=== PATIENT | female | born 1990 | race Caucasian/White ===

== ENCOUNTER 2018-06-28 18:04 | Emergency (ER) | payer OTHER | END 2018-06-28 20:55 | disposition home or self-care (01) | LOC: M ED 18:04 | DX: O9A.213 Injury, poisoning and certain other consequences of external causes complicating pregnancy, third trimester (principal); R10.11 Right upper quadrant pain; R10.31 Right lower quadrant pain; Z3A.29 29 weeks gestation of pregnancy; W01.0XXA Fall on same level from slipping, tripping and stumbling without subsequent striking against object, initial encounter; Y92.89 Other specified places as the place of occurrence of the external cause; Z88.0 Allergy status to penicillin; Z79.899 Other long term (current) drug therapy | CPT/HCPCS: 76815 ==

== ENCOUNTER 2018-08-30 16:54 | Inpatient (IN) | payer OTHER ==
[2018-08-30] MEDS: LR 1,000 ML IV (18:27)
[2018-08-30 18:56] LABS: BASO # 0.1 10^3/uL (0.0-0.2); BASO % 0.4 % (0.0-1.0); EOS # 0.1 10^3/uL (0.0-0.50); EOS % 1.3 % (0.0-3.0); HEMATOCRIT 38.6 % (36.0-47.0); HEMOGLOBIN 12.7 g/dl (12.0-15.5); IMMATURE GRANULOCYTE % 0.4 % (0-3.0); LYMPH # 2.9 10^3/uL (1.5-6.5); LYMPH % 26.1 % (24.0-44.0); MEAN CORPUSCULAR HEMOGLOBIN 28.1 pg (27.0-33.0); MEAN CORPUSCULAR HGB CONC 32.9 g/dl (32.0-36.5); MEAN CORPUSCULAR VOLUME 85.4 fl (80.0-96.0); MONO # 0.6 10^3/uL (0.0-0.8); MONO % 5.7 % (0.0-5.0); NEUTROPHILS # 7.4 10^3/uL (1.8-7.7); NEUTROPHILS % 66.1 % (36.0-66.0); PLATELET COUNT, AUTOMATED 336 10^3/uL (150-450); RED BLOOD COUNT 4.52 10^6/uL (4.00-5.40); RED CELL DISTRIBUTION WIDTH 15.1 % (11.5-14.5); WHITE BLOOD COUNT 11.2 10^3/uL (4.0-10.0)
[2018-08-30] MEDS: LACTATED RINGER'S 1000 ML IV (19:05)
[2018-08-30] MEDS ORDERED: FENTANYL 2MCG/ML ROPIVACAINE 0.2% IN 0.9% NACL 200ML IVBAG As Ordered (19:52)
[2018-08-30] MEDS: FENTANYL/ROPIVACAINE/NACL BAG 200 ML EPIDURAL (20:24)
[2018-08-30] MEDS ORDERED: REFRIGERATOR IV KEYS XX (21:15)
[2018-08-30] MEDS ORDERED: diphenhydrAMINE INJ 50MG/ML VIAL (J1200) IV (21:15)
[2018-08-30] MEDS ORDERED: EPIDURAL COMMENT XX (21:15)
[2018-08-30] MEDS ORDERED: NALOXONE INJ 0.4 MG/1 ML VIAL (J2310) IV (21:15)
[2018-08-30] MEDS ORDERED: LACTATED RINGER'S 1000 ML IV (21:15)
[2018-08-30] MEDS ORDERED: EPIDURAL/PCA KEYS XX (21:15)
[2018-08-30] MEDS: OXYTOCIN DRIP 30 UNITS in APPROPRIATE DILUENT 1 EA IV (21:28)
[2018-08-30] MEDS: ePHEDrine SULFATE 25 MG/5 ML(5MG/ML) SYRINGE IV ×3 (21:55→22:07)
[2018-08-30] MEDS: ONDANSETRON 4MG/2ML VIAL (J2405) IV (22:17)
[2018-08-31] MEDS: OXYTOCIN DRIP 30 UNITS in APPROPRIATE DILUENT 1 EA IV (06:21)
[2018-08-31] MEDS ORDERED: MEASLES,MUMPS,RUBELLA VACCINE INJ (MMR-II) (90707) SC (06:45)
[2018-08-31] MEDS ORDERED: ONDANSETRON 4MG/2ML VIAL (J2405) IV (06:45)
[2018-08-31] MEDS ORDERED: RHOGAM 300 MCG (1500 IU) INJ (J2790) IM (06:45)
[2018-08-31] MEDS ORDERED: DOCUSATE SODIUM 100 MG CAP PO (06:45)
[2018-08-31] MEDS ORDERED: IBUPROFEN 800 MG TAB As Ordered (06:46)
[2018-08-31] MEDS: IBUPROFEN 800 MG TAB PO ×2 (06:47→18:15)
[2018-08-31] MEDS: ACETAMINOPHEN 500 MG TAB PO ×2 (09:46→20:47)
[2018-08-31] MEDS: PRENATAL VITAMINS CHEWABLE TABLET PO (10:10)
[2018-08-31] MEDS: LORATADINE 10 MG TAB PO (12:38)
[2018-08-31] MEDS: LEVOTHYROXINE 125MCG TABLET (0.125MG) PO (12:38)
[2018-08-31] MEDS: DIBUCAINE 1% OINTMENT 30GM TOP (18:54)
[2018-08-31] MEDS ORDERED: SLF 3 ML SYR IV (19:45)
[2018-08-31] MEDS: SLF 3 ML SYR IV (22:00)
[2018-09-01] MEDS: IBUPROFEN 800 MG TAB PO (01:56)
[2018-09-01] MEDS: LEVOTHYROXINE 125MCG TABLET (0.125MG) PO (05:41)
[2018-09-01] MEDS: ACETAMINOPHEN 500 MG TAB PO (05:41)
[2018-09-01] MEDS: LORATADINE 10 MG TAB PO (07:43)
[2018-09-01] MEDS: PRENATAL VITAMINS CHEWABLE TABLET PO (07:43)
== END 2018-09-01 13:45 | disposition home or self-care (01) | DRG 775 ==
LOC: M LDO 16:54 → M OBS 08-31 09:17 → M LDI 17:51
PROVIDERS: Obstetrics & Gynecology
PROC: 10E0XZZ Delivery of Products of Conception, External Approach (ICD-10-PCS; principal; 2018-08-31)
PROC: 0HQ9XZZ Repair Perineum Skin, External Approach (ICD-10-PCS; 2018-08-31)
DX: O42.02 Full-term premature rupture of membranes, onset of labor within 24 hours of rupture (principal); Z68.41 Body mass index [BMI] 40.0-44.9, adult; O99.214 Obesity complicating childbirth; Z3A.38 38 weeks gestation of pregnancy; E66.9 Obesity, unspecified; O99.284 Endocrine, nutritional and metabolic diseases complicating childbirth; E03.9 Hypothyroidism, unspecified; O69.81X0 Labor and delivery complicated by cord around neck, without compression, not applicable or unspecified; O70.0 First degree perineal laceration during delivery; Z37.0 Single live birth

== ENCOUNTER 2018-12-21 10:43 | Day surgery (SDC) | payer OTHER ==
[~2018-12-21] VITALS: Ht 165.1 cm; Wt 109.4 kg
[~2018-12-21 10:43] MED LIST: ACET160S5 PO; CETI10CH PO; CLAR10CA3 PO; COLA100C5 PO; LEVO125T4 PO; MOTR200T44 PO; MULTTAB20 PO
[2018-12-21] MEDS ORDERED: MIDAZOLAM INJ 2 MG/2 ML VIAL (J2250) As Ordered ONE ×2 (10:55→14:05)
[2018-12-21] MEDS ORDERED: LIDOCAINE 2% INJ 100 MG/5 ML SDV (FOR ANES.) As Ordered ONE ×2 (10:55→14:05)
[2018-12-21] MEDS ORDERED: PROPOFOL 200 MG/20 ML VIAL As Ordered ONE ×2 (10:55→14:05)
[2018-12-21] MEDS ORDERED: fentaNYL 100 MCG/2 ML INJECTION (J3010) As Ordered ONE ×3 (10:55→14:54)
[2018-12-21] MEDS ORDERED: ROCURONIUM BROMIDE 50 MG/5 ML VIAL As Ordered ONE ×3 (10:55→14:52)
[2018-12-21] MEDS ORDERED: BUPIVACAINE HCL 0.5% 30 ML VIAL As Ordered ONE (11:06)
[2018-12-21 11:13] LABS: HEMATOCRIT 40.3 % (36.0-47.0); MEAN CORPUSCULAR HEMOGLOBIN 27.3 pg (27.0-33.0); MEAN CORPUSCULAR HGB CONC 32.3 g/dl (32.0-36.5); MEAN CORPUSCULAR VOLUME 84.7 fl (80.0-96.0); PLATELET COUNT, AUTOMATED 303 10^3/uL (150-450); RED BLOOD COUNT 4.76 10^6/uL (4.00-5.40); WHITE BLOOD COUNT 6.8 10^3/uL (4.0-10.0)
[2018-12-21] MEDS ORDERED: MORPHINE 10 MG/ML 1ML VIAL (J2270) As Ordered ONE (11:14)
[2018-12-21] MEDS ORDERED: LR 1,000 ML IV ONE (11:30)
[2018-12-21 11:41] LABS: HCG, SERUM QUALITATIVE NEGATIVE (NEGATIVE)
[2018-12-21] MEDS ORDERED: ONDANSETRON 4MG/2ML VIAL (J2405) As Ordered ONE ×2 (11:45→14:44)
[2018-12-21] MEDS ORDERED: SUGAMMADEX SODIUM 500 MG/5 ML VIAL (BRIDION) As Ordered ONE ×2 (11:47→15:17)
[2018-12-21] MEDS ORDERED: dexameTHASONE 4 MG/ML 1ML VIAL (J1100) As Ordered ONE (14:27)
[2018-12-21] MEDS ORDERED: NEOSTIGMINE 10 MG/10 ML VIAL (J2710) As Ordered ONE ×2 (14:45→14:46)
[2018-12-21] MEDS ORDERED: GLYCOPYRROLATE INJ 0.2 MG/ML 2 ML VIAL As Ordered ONE (14:45)
[2018-12-21] MEDS ORDERED: KETOROLAC 60 MG/2 ML VIAL (J1885) As Ordered ONE (14:45)
[2018-12-21] MEDS ORDERED: HYDROmorphone HCL 2 MG/ML 1ML VIAL (J1170) As Ordered ONE (14:58)
[2018-12-21] MEDS ORDERED: METOCLOPRAMIDE INJ 10MG/2ML VIAL (J2765) As Ordered ONE (15:00)
[2018-12-21] MEDS ORDERED: SILVER NITRATE APPLICATOR As Ordered ONE (15:19)
[2018-12-21] MEDS ORDERED: ONDANSETRON 4MG/2ML VIAL (J2405) IV PRN (15:45)
[2018-12-21] MEDS ORDERED: PERCOCET 5MG/325MG TAB PO PRN (15:45)
[2018-12-21] MEDS ORDERED: fentaNYL 100 MCG/2 ML INJECTION (J3010) IV PRN (15:45)
[2018-12-21] MEDS ORDERED: LR 1,000 ML IV SCH (15:45)
[2018-12-21] MEDS ORDERED: PERCOCET 5MG/325MG TAB PO ONE (16:00)
[2018-12-21] MEDS ORDERED: KETOROLAC 30 MG/ML VIAL (J1885) IV ONE (16:00)
[2018-12-21] MEDS ORDERED: PROMETHAZINE INJ 25 MG/ML VIAL (J2550) As Ordered ONE (16:25)
[2018-12-21] MEDS ORDERED: PROMETHAZINE INJ 25 MG/ML VIAL (J2550) IV PRN (17:00)
[2018-12-21 18:30] VITALS: BP 124/75
--- NOTE | 2018-12-22 09:00 | RO ---
DATE OF PROCEDURE: 12/21/2018 PREOPERATIVE DIAGNOSIS: Satisfied parity. POSTOPERATIVE DIAGNOSIS: Satisfied parity. PROCEDURE: Laparoscopic bilateral salpingectomy. SURGEON: Dr. Shon Rosa CHAIN PULLER: Dr. Juana Zuniga ANESTHESIA: General. FLUID: 500 mL lactated Ringers (LR). URINE OUTPUT: 600 mL via Delgado catheter. ESTIMATED BLOOD LOSS (EBL): 5 mL. COMPLICATIONS: None. DETAILED PROCEDURE DESCRIPTION: The risks, benefits, indications and alternatives of the procedure were reviewed with the patient and informed consent was obtained. The patient was taken to the operating room where general anesthesia was obtained without difficulty. The patient was then placed in a lithotomy position using gel padded Lazaro stirrups. An Exam under anesthesia was then performed, which revealed a normal anteverted midline uterus. The patient's arms were then gently tucked to the side with padding. The patient was then prepped and draped in the usual sterile fashion. A surgical time-out was performed and the patient's identity and the planned procedure were verified with the operative team. A Delgado catheter was placed first to drain the bladder. A Outbox uterine manipulator was then placed into the uterus as a means to manipulate the uterus. Gloves were then exchanged, and attention was then turned back to the patient's abdomen where a 5 mm skin incision was then made in the inferior aspect of the umbilicus after an injection of Marcaine. A 5 mm trocar and sleeve were then carefully introduced into the peritoneal cavity under direct visualization at a 90 degree angle while tenting up the abdominal wall. Intraperitoneal placement was confirmed under direct visualization and entry pressure was noted to be less than 5 mmHg. A pneumoperitoneum was then obtained with several liters of CO2 gas. Upon entry into the peritoneal cavity, structures immediately below the incision were inspected and found to be free of injury. A survey of the patient's abdomen and pelvis was notable for a normal appearing liver, gallbladder, stomach and gastric curve. The uterus, fallopian tubes and ovaries were normal in appearance. The posterior cul-de-sac was inspected and was also normal, and the anterior cul-de-sac was normal as well. Two additional 5 mm trocars, one in the left lower quadrant and one the right lower quadrant were then placed into the abdomen under direct laparoscopic visualization after skin incisions were made with a scalpel. Using the LigaSure electrocautery, the left fallopian tube was dissected away the mesosalpinx from the fimbriated end to the isthmic portion, taking care to cauterize any vasculature within the mesosalpinx. The fallopian tube was then amputated at the connection to the uterine cornua and removed from the patient's abdomen entirely through the left lower quadrant port site. Attention was then turned to the patient's right fallopian tube, which was lifted by a blunt grasper and dissected in a similar fashion with the LigaSure electrocautery. The right fallopian tube was then amputated and also removed through the right lower quadrant port site intact. All operative sites were then inspected and noted to be hemostatic. The gas was then turned off and all CO2 was removed from the patient's abdomen. The patient was given three manual breaths to assist with desufflation of the abdomen. All remaining ports were then removed under direct visualization and there was no bleeding seen from the trocar sites. The skin incisions were then closed with #4-0 Monocryl suture and covered with Dermabond. Attention was then turned to the patient's vagina. The Hulka uterine manipulator was then removed and hemostasis was achieved at the tenaculum site with sliver nitrate. All instruments were then confirmed to have been removed from the vagina. At the completion of the case, the sponge, instrument and needle counts were correct time two. The patient tolerated the procedure well. She was cleansed and dried and taken out of lithotomy position, awakened from anesthesia and was taken to the postanesthesia care unit (PACU) in stable condition. MÓNICA
== END 2018-12-21 18:40 | disposition home or self-care (01) ==
LOC: M SDC 10:43
PROVIDERS: ATTEND Obstetrics & Gynecology
DX: Z30.2 Encounter for sterilization (principal); E03.9 Hypothyroidism, unspecified; K21.9 Gastro-esophageal reflux disease without esophagitis; Z88.0 Allergy status to penicillin; Z79.899 Other long term (current) drug therapy
CPT/HCPCS: 36415; 58661; 84703; 85027; 86850; 86900; 86901; 88302; J1100; J1170; J1885; J2250; J2270; J2405; J2765; J3010

== ENCOUNTER → 2021-05-09 | Outpatient (CLI) | payer OTHER ==
[~2021-05-09] MED LIST changes: +ACET-1439 PO; -ACET160S5 PO
--- NOTE | 2021-05-09 14:51 | REP ---
INDICATION: PRE EMPLOYMENT EXAM. COMPARISON: None. FINDINGS: The superior mediastinal structures are midline. The cardiac silhouette is unremarkable in size, shape, and position. The diaphragmatic surfaces of the lungs are regular, and the costophrenic angles are clear. The pulmonary sullivan are clear. The imaged osseous structures are intact. IMPRESSION: There is no acute cardiopulmonary disease. <Electronically signed by Miguelito Woods > 05/09/21 [id number]
== END ==
LOC: M WUC 14:34
DX: Z02.1 Encounter for pre-employment examination (principal)